=== PATIENT | female | born 1980 | race Caucasian/White ===

== ENCOUNTER → 2017-01-11 | Outpatient (CLI) | payer BC | END | disposition home or self-care (01) | LOC: LABWHC1 12:01 | PROVIDERS: ATTEND Obstetrics & Gynecology | DX: Z34.80 Encounter for supervision of other normal pregnancy, unspecified trimester (principal) | CPT/HCPCS: 36415; 84702 ==

== ENCOUNTER → 2017-03-26 | Outpatient (CLI) | payer BC | END | disposition home or self-care (01) | LOC: LABWHC1 12:31 | PROVIDERS: ATTEND Obstetrics & Gynecology | DX: Z34.80 Encounter for supervision of other normal pregnancy, unspecified trimester (principal); Z3A.00 Weeks of gestation of pregnancy not specified | CPT/HCPCS: 36415; 84702 ==

== ENCOUNTER → 2017-03-29 | Outpatient (CLI) | payer BC | END | disposition home or self-care (01) | LOC: LABWHC1 11:38 | PROVIDERS: ATTEND Obstetrics & Gynecology | DX: Z34.80 Encounter for supervision of other normal pregnancy, unspecified trimester (principal); Z3A.00 Weeks of gestation of pregnancy not specified | CPT/HCPCS: 36415; 84702 ==

== ENCOUNTER 2017-04-29 06:18 | Day surgery (SDC) | payer BC ==
[2017-04-27 09:50] VITALS: BMI 21.1
--- NOTE | 2017-04-28 20:16 | P.HPOB ---
History of Present Illness H&P Date: 04/28/17 Chief Complaint: Missed This is a 36 y.o. female, 3, para 1, who presents for suction dilatation and curettage secondary to missed noted on ultrasound at maternal medicine on 04/23/2017. Fetus pole measured 7 weeks 1 day with no heart tones. She did have a previous ultrasound in my office on 2017 that did show heart tones. In light of the demise, she has elected to proceed with suction dilatation and curettage and would like chromosomal studies done to help determine the cause. She had a recent spontaneous miscarriage in December. She denies any cramping or bleeding. Blood type is A+. OB History: . 1 section at 34 weeks due to severe preeclampsia. 1 spontaneous miscarriage. 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 Review of Systems Constitutional: Denies chills, Denies fever Eyes: denies blurred vision, denies pain Ears, nose, mouth and throat: Denies headache, Denies sore throat Cardiovascular: Denies chest pain, Denies shortness of breath Respiratory: Denies cough Gastrointestinal: Reports nausea, Reports vomiting Genitourinary: Reports , Denies abnormal vaginal bleeding, Denies pelvic pain Musculoskeletal: Denies myalgias Integumentary: Denies pruritus, Denies rash Past Medical History Past Medical History: Asthma Additional Past Medical History / Comment(s): Exercise induced asthma History of Any Multi-Drug Resistant Organisms: None Reported Additional Past Surgical History / Comment(s): D&C, pain management in back Past Anesthesia/Blood Transfusion Reactions: No Reported Reaction Past Psychological History: No Psychological Hx Reported Smoking Status: Never smoker Past Alcohol Use History: None Reported Past Drug Use History: None Reported - Past Family History Mother History Unknown: Yes Family Medical History: Hypertension Medications and Allergies Home Medications Medication Instructions Recorded Confirmed Type Ondansetron [Zofran] 4 mg PO Q8HR PRN 04/27/17 04/29/17 History Allergies Allergy/AdvReac Type Severity Reaction Status Date / Time PCN Allergy Rash/Hives Uncoded 04/29/17 06:46 Exam Osteopathic Statement: *. No significant issues noted on an osteopathic structural exam other than those noted in the History and Physical/Consult. HEENT: within normal limits Heart: regular rate and rhythm Lungs: clear to auscultation bilaterall Abdomen: soft, non-tender Pelvic: uterus sl. enlarged, retroverted, non-tender, with no adnexal masses Extremities: neg. Luis Eduardo's. Assessment and Plan (1) Missed Current Visit: Yes Status: Acute Code(s): O02.1 - MISSED SNOMED Code(s): 06866813 Plan: Proceed with suction dilatation and curettage. I have discussed the risks, benefits, and alternative therapies for the above- mentioned procedure and for both sedation/anesthesia as well as necessary blood products administration, if indicated, as they pertain to this patient. The patient has indicated her understanding and acceptance of the risks and procedures discussed.
[~2017-04-29 06:18] MED LIST: LACTATED RINGERS 1,000 ML IV SCH; MORPHINE SULFATE 4 MG/ML SYRINGE IV PRN; ONDANSETRON 4 MG/2 ML VIAL IVP PRN; Pre Op ABX Message 1 EACH MISC MISCELLANE ONE; fentaNYL (PF) 50 MCG/ML 2 ML AMP IV PRN
[2017-04-29] MEDS ORDERED: LIDOCAINE 1%-EPI 1:100,000 30 ML VIAL INTRAARTIC ONE (07:07)
[2017-04-29] MEDS ORDERED: DEXAMETHASONE SOD PHOSPHATE 10 MG/ML 1 ML VIAL IV ONE (07:13)
[2017-04-29] MEDS ORDERED: KETOROLAC 30 MG/ML 1 ML VIAL ONE (07:33)
[2017-04-29] MEDS ORDERED: MIDAZOLAM 2 MG/2 ML VIAL ONE (07:33)
[2017-04-29] MEDS ORDERED: fentaNYL (PF) 50 MCG/ML 2 ML AMP ONE (07:33)
[2017-04-29] MEDS ORDERED: PROPOFOL 10 MG/ML 20 ML VIAL IV ONE (07:33)
[2017-04-29] MEDS ORDERED: LIDOCAINE 1% INJ 10MG/ML (20 ML MDV) ONE (07:33)
--- NOTE | 2017-04-29 07:55 | P.OP ---
Date of Procedure: 04/29/17 Preoperative Diagnosis: Missed Postoperative Diagnosis: Same Procedure(s) Performed: Suction dilation and curettage Anesthesia: SIERRA Surgeon: Elziabeth Dial Estimated Blood Loss (ml): 10 Pathology: other (Products of conception) Condition: stable Disposition: same day Indications for Procedure: This is a 36 y.o. female, 3, para 1, who presents for suction dilatation and curettage secondary to missed noted on ultrasound at maternal medicine on 04/23/2017. Fetus pole measured 7 weeks 1 day with no heart tones. She did have a previous ultrasound in my office on 2017 that did show heart tones. In light of the demise, she has elected to proceed with suction dilatation and curettage and would like chromosomal studies done to help determine the cause. She had a recent spontaneous miscarriage in December. She denies any cramping or bleeding. Blood type is A+. Operative Findings: Uterus is retroverted with no adnexal masses palpated. A large amount of products of conception are obtained. Uterus is sounded to 11 cm Description of Procedure: The patient is taken to the operating room where she is placed in the dorsal lithotomy position. She is prepped and draped in the normal sterile fashion. Bladder is drained with a catheter and then removed. Uterus is palpated and found to be retroverted with no adnexal masses palpated. Uterus is sounded to 11 cm. Cervix is gently dilated with Hogan dilators until an 8 mm curved suction curet could be placed. Suction curetting was performed with a large amount of tissue obtained. Next a medium-size sharp curet was introduced and gentle sharp curettage was performed with no further tissue obtained. Next suction curetting was performed one further time to remove any blood clot. Next the single-tooth tenaculum is removed and pressure was applied with a ring forcep for hemostasis. Once the ring forcep was removed no active bleeding was noted. All other instruments were removed from the vagina. Estimated blood loss is approximately 10 mL's. Specimen will be sent to pathology for chromosomal analysis in normal saline.
[2017-04-29 08:10] VITALS: TEMP 98.4
[2017-04-29 09:11] VITALS: RESP 18
[2017-04-29 09:20] VITALS: BP 100/64; PULSE 68
== END 2017-04-29 09:38 | disposition home or self-care (01) ==
LOC: OR 06:18
PROVIDERS: ATTEND Obstetrics & Gynecology
DX: O02.1 Missed abortion (principal); J45.909 Unspecified asthma, uncomplicated; Z88.0 Allergy status to penicillin
CPT/HCPCS: 88305; 59820; J2250; J1100; J2405; J2001; J3010; J1885; J2704

== ENCOUNTER → 2017-08-10 | Outpatient (CLI) | payer BC | END | disposition home or self-care (01) | LOC: LABWHC1 16:33 | PROVIDERS: ATTEND Obstetrics & Gynecology | DX: Z34.80 Encounter for supervision of other normal pregnancy, unspecified trimester (principal); Z3A.00 Weeks of gestation of pregnancy not specified | CPT/HCPCS: 36415; 84702 ==

== ENCOUNTER → 2017-08-12 | Outpatient (CLI) | payer BC | END | disposition home or self-care (01) | LOC: LABWHC1 16:16 | PROVIDERS: ATTEND Obstetrics & Gynecology | DX: Z34.80 Encounter for supervision of other normal pregnancy, unspecified trimester (principal) | CPT/HCPCS: 36415; 84702 ==

== ENCOUNTER → 2017-08-16 | Outpatient (CLI) | payer BC | END | disposition home or self-care (01) | LOC: LABWHC1 13:02 | PROVIDERS: ATTEND Obstetrics & Gynecology | DX: Z34.80 Encounter for supervision of other normal pregnancy, unspecified trimester (principal) | CPT/HCPCS: 36415; 84702 ==

== ENCOUNTER 2017-09-28 11:11 | Day surgery (SDC) | payer BC ==
[2017-09-27 11:35] VITALS: BMI 21.9
--- NOTE | 2017-09-27 19:29 | P.HPOB ---
History of Present Illness H&P Date: 09/27/17 Chief Complaint: Missed This is a 36-year-old female 4 para 1 who presents for suction dilation and curettage due to missed . She initially presented for her first OB visit on 09/23/2017 and should've been 9 weeks 5 days based on her last menstrual period. Ultrasound at that time showed a demise measuring approximate 7 weeks 5 days. She had a repeat ultrasound on 09/27/2017 which again confirmed demise at 7 weeks 5 days. She has had some cramping but no bleeding. Her blood type is A+. Since this is her third miscarriage and a row, she wishes chromosomal studies to be performed to determine possible cause of miscarriage. With her last miscarriage in April 2017, chromosomal studies were performed and fetus showed a trisomy 15 karyotype. Obstetrical history: . History of 1 section at 34 weeks due to distress and severe preeclampsia. History of 2 miscarriages following that delivery. Gynecologic history: No history of sexual transmitted diseases. She does have a history of positive high risk HPV on her last Pap smear. Social history: She is . 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 Review of Systems Constitutional: Denies chills, Denies fever Eyes: denies blurred vision, denies pain Ears, nose, mouth and throat: Denies headache, Denies sore throat Cardiovascular: Denies chest pain, Denies shortness of breath Respiratory: Denies cough Gastrointestinal: Reports abdominal pain (Lower abdominal cramping), Denies diarrhea, Denies nausea, Denies vomiting Genitourinary: Reports pelvic pain, Reports Integumentary: Denies pruritus, Denies rash Neurological: Denies numbness, Denies weakness Psychiatric: Denies anxiety, Denies depression Past Medical History Past Medical History: Asthma Additional Past Medical History / Comment(s): Exercise induced asthma, fibromyalgia History of Any Multi-Drug Resistant Organisms: None Reported Past Surgical History: Section Additional Past Surgical History / Comment(s): currently having on and off cramping, D&C 2, pain management in back Past Anesthesia/Blood Transfusion Reactions: No Reported Reaction Past Psychological History: No Psychological Hx Reported Smoking Status: Never smoker Past Alcohol Use History: None Reported Past Drug Use History: None Reported - Past Family History Mother History Unknown: Yes Family Medical History: Hypertension Medications and Allergies Home Medications Medication Instructions Recorded Confirmed Type Albuterol Inhaler [Ventolin Hfa 1 - 2 puff INHALATION RT-Q6H PRN 09/27/17 History Inhaler] Allergies Allergy/AdvReac Type Severity Reaction Status Date / Time PCN Allergy Rash/Hives Uncoded 09/27/17 11:31 Exam Osteopathic Statement: *. No significant issues noted on an osteopathic structural exam other than those noted in the History and Physical/Consult. Intake and Output 09/27/17 09/27/17 09/27/17 06:59 14:59 22:59 Other: Weight 63.503 kg HEENT: Within normal limits Heart: Regular rate and rhythm Lungs: Clear to auscultation bilaterally Abdomen: Soft, nontender Pelvic exam: Uterus is retroverted, nontender, slightly enlarged, with no adnexal masses palpated. Extremities: Negative Homans Assessment and Plan (1) Missed Status: Acute Code(s): O02.1 - MISSED SNOMED Code(s): 14975450 Plan: Proceed with suction dilation and curettage. Will send tissue for chromosomal analysis. I have discussed the risks, benefits, and alternative therapies for the above- mentioned procedure and for both sedation/anesthesia as well as necessary blood products administration, if indicated, as they pertain to this patient. The patient has indicated her understanding and acceptance of the risks and procedures discussed.
[~2017-09-28 11:11] MED LIST changes: +DEXAMETHASONE SOD PHOSPHATE 10 MG/ML 1 ML VIAL IV ONE; +MIDAZOLAM 2 MG/2 ML VIAL IV PRN; -MORPHINE SULFATE 4 MG/ML SYRINGE IV PRN; +ONDANSETRON 4 MG/2 ML VIAL IVP ONE; -ONDANSETRON 4 MG/2 ML VIAL IVP PRN; +SCOPOLAMINE 1.5MG/72HR PATCH TRANSDERM ONE
[2017-09-28 11:36] VITALS: TEMP 98.7
[2017-09-28] MEDS ORDERED: LIDOCAINE 1% 20 ML VIAL (10MG/ML) FOR IV START INTRADERMA ONE (11:42)
[2017-09-28] MEDS ORDERED: PROPOFOL 10 MG/ML 20 ML VIAL IV ONE (13:10)
[2017-09-28] MEDS ORDERED: fentaNYL (PF) 50 MCG/ML 2 ML AMP ONE (13:10)
[2017-09-28] MEDS ORDERED: KETOROLAC 30 MG/ML 1 ML VIAL ONE (13:10)
[2017-09-28] MEDS ORDERED: MIDAZOLAM 2 MG/2 ML VIAL ONE (13:10)
[2017-09-28] MEDS ORDERED: LIDOCAINE 1% INJ 10MG/ML (20 ML MDV) ONE (13:10)
--- NOTE | 2017-09-28 13:26 | P.OP ---
Date of Procedure: 09/28/17 Preoperative Diagnosis: Missed Postoperative Diagnosis: Same Procedure(s) Performed: Suction dilation and curettage Anesthesia: other (Mask general) Surgeon: Elizabeth Dial Estimated Blood Loss (ml): 20 Pathology: other (Products of conception-will be sent for chromosomal studies) Condition: stable Disposition: same day Indications for Procedure: This is a 36-year-old female 4 para 1 who presents for suction dilation and curettage due to missed . She initially presented for her first OB visit on 09/23/2017 and should've been 9 weeks 5 days based on her last menstrual period. Ultrasound at that time showed a demise measuring approximate 7 weeks 5 days. She had a repeat ultrasound on 09/27/2017 which again confirmed demise at 7 weeks 5 days. She has had some cramping but no bleeding. Her blood type is A+. Since this is her third miscarriage and a row, she wishes chromosomal studies to be performed to determine possible cause of miscarriage. With her last miscarriage in April 2017, chromosomal studies were performed and fetus showed a trisomy 15 karyotype. Operative Findings: Uterus is retroverted and sounded to 9-1/2 cm. A large amount of products of conception are obtained. Description of Procedure: The patient is taken to the operating room where she is placed in the dorsal lithotomy position. She is prepped and draped in the normal sterile fashion. Bladder is drained with a catheter and then removed. Examination is performed under anesthesia. Uterus is found to be retroverted with no adnexal masses palpated. Next a weighted speculum was placed in the patient's vagina and a right angle retractor was used to visualize the cervix. The anterior lip of the cervix is grasped with a single-tooth tenaculum. Next the uterus is sounded to 9-1/2 cm. Cervix is gently dilated with Hogan dilators until an 8 mm curved suction curet could be placed. Suction curetting was performed with a large amount of tissue obtained. Gentle sharp curettage was then performed with a medium-size sharp curet. Minimal further tissue was obtained. Next section curetting was performed one further time to remove any blood clot. A small amount of saline was used to clear the suction tubing. Next the single- tooth tenaculum was removed from the anterior lip of the cervix. Minimal bleeding was noted. Tissue will be sent for chromosomal studies. All sponge and needle counts are correct. Patient is taken to recovery room in stable condition.
[2017-09-28 13:40] VITALS: RESP 18
[2017-09-28 13:56] VITALS: BP 107/70; PULSE 74
== END 2017-09-28 14:21 | disposition home or self-care (01) ==
LOC: OR 11:11
PROVIDERS: ATTEND Obstetrics & Gynecology
DX: O02.1 Missed abortion (principal); Z3A.01 Less than 8 weeks gestation of pregnancy; N85.4 Malposition of uterus; J45.998 Other asthma; M79.7 Fibromyalgia; Z91.012 Allergy to eggs; Z91.011 Allergy to milk products; Z88.0 Allergy status to penicillin; Z91.018 Allergy to other foods
CPT/HCPCS: 86900; 86901; 88305; 59820; J2250; J1100; J2405; J2001; J3010; J1885; J2704

== ENCOUNTER → 2018-01-11 | Outpatient (CLI) | payer BC | END | disposition home or self-care (01) | LOC: LABWHC1 10:54 | PROVIDERS: ATTEND Obstetrics & Gynecology | DX: O26.819 Pregnancy related exhaustion and fatigue, unspecified trimester (principal); Z3A.00 Weeks of gestation of pregnancy not specified | CPT/HCPCS: 36415; 84702 ==

== ENCOUNTER → 2018-01-15 | Outpatient (CLI) | payer BC | END | disposition home or self-care (01) | LOC: LABWHC1 11:20 | PROVIDERS: ATTEND Obstetrics & Gynecology | DX: O26.819 Pregnancy related exhaustion and fatigue, unspecified trimester (principal); Z3A.00 Weeks of gestation of pregnancy not specified | CPT/HCPCS: 36415; 84702 ==

== ENCOUNTER → 2018-01-17 | Outpatient (CLI) | payer BC | END | disposition home or self-care (01) | LOC: LABWHC1 15:00 | PROVIDERS: ATTEND Obstetrics & Gynecology | DX: Z34.80 Encounter for supervision of other normal pregnancy, unspecified trimester (principal) | CPT/HCPCS: 36415; 84702 ==

== ENCOUNTER 2018-02-06 12:58 | Emergency (ER) | payer BC ==
[2018-02-06 13:03] VITALS: RESP 18
[2018-02-06] MEDS ORDERED: SODIUM CHLORIDE 0.9% 1,000 ML IV ONE (13:59)
--- NOTE | 2018-02-06 14:02 | ED ---
General Adult HPI <Ghulam Rueda - Last Filed: 02/06/18 15:59> - General Source: patient, RN notes reviewed Mode of arrival: ambulatory Limitations: no limitations <Salbador Reaves - Last Filed: 02/06/18 16:26> - General Chief complaint: Vaginal Bleeding Stated complaint: 8wks -bleeding Time Seen by Provider: 02/06/18 13:16 - History of Present Illness Initial comments: 37-year-old 5 P1 presents to the emergency department for a chief complaint of vaginal bleeding 4 hours. Patient states the bleeding started this morning and describes it as a light spotting. She states it has since resolved. However, patient has had 3 previous miscarriages this year and is worried about the . She admits to mild lower abdominal cramping but denies any significant pain. Patient denies any lightheadedness or shortness of breath. Patient is an established patient of Dr. Dial. Patient has no other complaints at this time including shortness of breath, chest pain, abdominal pain, nausea or vomiting, headache, or visual changes. (Salbador Reaves) - Related Data Home Medications Medication Instructions Recorded Confirmed Nwt-Vavk-Cemdx Acid 1 cap PO DAILY 02/06/18 02/06/18 [-U Capsule (formulary)] Allergies Allergy/AdvReac Type Severity Reaction Status Date / Time Penicillins Allergy Rash/Hives Verified 02/06/18 13:48 Review of Systems ROS Other: All systems not noted in ROS Statement are negative. <Ghulam Rueda - Last Filed: 02/06/18 15:59> ROS Other: All systems not noted in ROS Statement are negative. <Salbador Reaves - Last Filed: 02/06/18 16:26> ROS Statement: Those systems with pertinent positive or pertinent negative responses have been documented in the HPI. Past Medical History Past Medical History: Asthma Additional Past Medical History / Comment(s): Exercise induced asthma, fibromyalgia History of Any Multi-Drug Resistant Organisms: None Reported Past Surgical History: Section Additional Past Surgical History / Comment(s): currently having on and off cramping, D&C 2, pain management in back Past Anesthesia/Blood Transfusion Reactions: No Reported Reaction Past Psychological History: No Psychological Hx Reported Smoking Status: Never smoker Past Alcohol Use History: None Reported Past Drug Use History: None Reported - Past Family History Mother History Unknown: Yes Family Medical History: Hypertension <Salbador Reaves - Last Filed: 02/06/18 16:26> General Exam Limitations: no limitations General appearance: alert, in no apparent distress Head exam: Present: atraumatic, normocephalic, normal inspection Eye exam: Present: normal appearance, PERRL, EOMI. Absent: scleral icterus, conjunctival injection, periorbital swelling ENT exam: Present: normal exam, mucous membranes moist Neck exam: Present: normal inspection, full ROM. Absent: tenderness, meningismus, lymphadenopathy Respiratory exam: Present: normal lung sounds bilaterally. Absent: respiratory distress, wheezes, rales, rhonchi, stridor Cardiovascular Exam: Present: regular rate, normal rhythm, normal heart sounds. Absent: systolic murmur, diastolic murmur, rubs, gallop, clicks GI/Abdominal exam: Present: soft, normal bowel sounds. Absent: distended, tenderness, guarding, rebound, rigid External exam: Present: normal external exam. Absent: erythema, swelling, lesions, lacerations, ecchymosis Speculum exam: Present: normal speculum exam. Absent: erythema, vaginal discharge, cervical discharge, vaginal bleeding, foreign body, tissue, laceration By manual exam: Present: normal by manual exam. Absent: cervical motion tenderness, adnexal tenderness, adnexal mass, uterine enlargement, uterine tenderness Neurological exam: Present: alert, oriented X3, CN II-XII intact Psychiatric exam: Present: normal affect, normal mood <Sablador Reaves - Last Filed: 02/06/18 16:26> Vital Signs 02/06/18 13:00 Temperature 98.4 F Pulse Rate 92 Respiratory 18 Rate Blood Pressure 123/81 O2 Sat by Pulse 100 Oximetry Medical Decision Making - Lab Data Result diagrams: 02/06/18 14:05 02/06/18 14:05 <Ghulam Rueda - Last Filed: 02/06/18 15:59> - Lab Data Result diagrams: 02/06/18 14:05 02/06/18 14:05 <Salbador Reaves - Last Filed: 02/06/18 16:26> - Medical Decision Making Patient reevaluated by myself, Dr. Rueda. Patient resting comfortably in bed. Patient states she had mild bleeding this morning that has resolved. No pain. Abdomen and lower abdomen soft and nontender on exam. Results reviewed. Patient updated on results. Patient is made aware that ectopic has not completely ruled out and is provided warning signs for need to return. Case was also discussed in detail with Dr. Ochoa, covering for Dr. Dial. He does request repeat beta and 48 hours and ultrasound as planned. He does recommend patient also follow-up with Dr. Dial in 48 hours. (Ghulam Rueda) 37-year-old female presents to the emergency department for intermittent spotting that lasted for a few hours but has since resolved. Patient is 8 weeks . She denies any pain. Speculum exam reveals no vaginal bleeding , cervical as does appear closed at this time. Abdomen is nontender. CBC and CMP are unremarkable. HCG Quant is 3698. Patient has a positive blood type, does not need RhoGAM. Ultrasound shows a thickened endometrium with complex fluid, no evidence of gestational sac, this could be incomplete . On ultrasound report beta hCG is recorded as 36,986. This is likely why the impression reads possibility of early molar . Dr. Rueda spoke with Dr. Ochoa who is on-call for Dr. Dial. Dr. Roldan recommends repeat beta hCG and follow-up on Wednesday with Dr. Dial after her ultrasound appointment. Patient will call the office Wednesday to verify that she will see Dr. Dial. She will have blood work repeated before she has her appointment. She will return if she has any worsening symptoms. (Salbador Reaves) - Lab Data Lab Results 02/06/18 02/06/18 02/06/18 Range/Units 14:05 14:05 14:05 WBC 4.8 (3.8-10.6) k/uL RBC 3.91 (3.80-5.40) m/uL Hgb 12.8 (11.4-16.0) gm/dL Hct 37.4 (34.0-46.0) % MCV 95.7 (80.0-100.0) fL MCH 32.6 (25.0-35.0) pg MCHC 34.1 (31.0-37.0) g/dL RDW 12.1 (11.5-15.5) % Plt Count 276 (150-450) k/uL Neutrophils % (Manual) 72 % Lymphocytes % (Manual) 20 % Monocytes % (Manual) 8 % Neutrophils # (Manual) 3.46 (1.3-7.7) k/uL Lymphocytes # (Manual) 0.96 L (1.0-4.8) k/uL Monocytes # (Manual) 0.38 (0-1.0) k/uL Nucleated RBCs 0 (0-0) /100 WBC Manual Slide Review Performed RBC Morphology Normal Sodium 140 (137-145) mmol/L Potassium 3.8 (3.5-5.1) mmol/L Chloride 107 (98-107) mmol/L Carbon Dioxide 24 (22-30) mmol/L Anion Gap 9 mmol/L BUN 11 (7-17) mg/dL Creatinine 0.67 (0.52-1.04) mg/dL Est GFR (CKD-EPI)AfAm >90 (>60 ml/min/1.73 sqM) Est GFR (CKD-EPI)NonAf >90 (>60 ml/min/1.73 sqM) Glucose 95 (74-99) mg/dL Calcium 9.5 (8.4-10.2) mg/dL Total Bilirubin 0.8 (0.2-1.3) mg/dL AST 16 (14-36) U/L ALT 17 (9-52) U/L Alkaline Phosphatase 42 (38-126) U/L Total Protein 7.6 (6.3-8.2) g/dL Albumin 4.3 (3.5-5.0) g/dL HCG, Quant 3698.6 mIU/mL Urine Color Urine Appearance (Clear) Urine pH (5.0-8.0) Ur Specific [place] (1.001-1.035) Urine Protein (Negative) Urine Glucose (UA) (Negative) Urine Ketones (Negative) Urine Blood (Negative) Urine Nitrite (Negative) Urine Bilirubin (Negative) Urine Urobilinogen (<2.0) mg/dL Ur Leukocyte Esterase (Negative) Urine RBC (0-5) /hpf Urine WBC (0-5) /hpf Ur Squamous Epith Cells (0-4) /hpf Urine Mucus (None) /hpf Blood Type A Positive Blood Type Recheck No 02/06/18 Range/Units 14:05 WBC (3.8-10.6) k/uL RBC (3.80-5.40) m/uL Hgb (11.4-16.0) gm/dL Hct (34.0-46.0) % MCV (80.0-100.0) fL MCH (25.0-35.0) pg MCHC (31.0-37.0) g/dL RDW (11.5-15.5) % Plt Count (150-450) k/uL Neutrophils % (Manual) % Lymphocytes % (Manual) % Monocytes % (Manual) % Neutrophils # (Manual) (1.3-7.7) k/uL Lymphocytes # (Manual) (1.0-4.8) k/uL Monocytes # (Manual) (0-1.0) k/uL Nucleated RBCs (0-0) /100 WBC Manual Slide Review RBC Morphology Sodium (137-145) mmol/L Potassium (3.5-5.1) mmol/L Chloride (98-107) mmol/L Carbon Dioxide (22-30) mmol/L Anion Gap mmol/L BUN (7-17) mg/dL Creatinine (0.52-1.04) mg/dL Est GFR (CKD-EPI)AfAm (>60 ml/min/1.73 sqM) Est GFR (CKD-EPI)NonAf (>60 ml/min/1.73 sqM) Glucose (74-99) mg/dL Calcium (8.4-10.2) mg/dL Total Bilirubin (0.2-1.3) mg/dL AST (14-36) U/L ALT (9-52) U/L Alkaline Phosphatase (38-126) U/L Total Protein (6.3-8.2) g/dL Albumin (3.5-5.0) g/dL HCG, Quant mIU/mL Urine Color Yellow Urine Appearance Clear (Clear) Urine pH 6.5 (5.0-8.0) Ur Specific [place] 1.021 (1.001-1.035) Urine Protein Trace H (Negative) Urine Glucose (UA) Negative (Negative) Urine Ketones Negative (Negative) Urine Blood Trace H (Negative) Urine Nitrite Negative (Negative) Urine Bilirubin Negative (Negative) Urine Urobilinogen 2.0 (<2.0) mg/dL Ur Leukocyte Esterase Negative (Negative) Urine RBC 4 (0-5) /hpf Urine WBC 1 (0-5) /hpf Ur Squamous Epith Cells 1 (0-4) /hpf Urine Mucus Few H (None) /hpf Blood Type Blood Type Recheck Disposition <Ghulam Rueda - Last Filed: 02/06/18 15:59> Is patient prescribed a controlled substance at d/c from ED?: No Time of Disposition: 16:11 <Salbador Reaves - Last Filed: 02/06/18 16:26> Clinical Impression: Threatened miscarriage Disposition: HOME SELF-CARE Condition: Good Instructions: Threatened Miscarriage (ED) Additional Instructions: Please have blood work repeated Wednesday before you see Dr. Dial. Please attend your ultrasound appointment on Wednesday and see Dr. Dial. Call Wednesday to arrange an appointment. Return to the emergency department if you have any worsening symptoms. Referrals: Jin Ortiz MD [Primary Care Provider] - 1-2 days
[2018-02-06 14:20] LABS: HCT 37.4 % (34.0-46.0); HGB 12.8 gm/dL (11.4-16.0); MCH 32.6 pg (25.0-35.0); MCHC 34.1 g/dL (31.0-37.0); MCV 95.7 fL (80.0-100.0); Mean Platelet Volume 6.7; Platelet Count 276 k/uL (150-450); RBC 3.91 m/uL (3.80-5.40); RDW 12.1 % (11.5-15.5); WBC 4.8 k/uL (3.8-10.6)
[2018-02-06 14:29] LABS: ALT 17 U/L (9-52); AST 16 U/L (14-36); Albumin 4.3 g/dL (3.5-5.0); Alkaline Phosphatase 42 U/L (38-126); Anion Gap 9 mmol/L; Blood Urea Nitrogen 11 mg/dL (7-17); Calcium 9.5 mg/dL (8.4-10.2); Carbon Dioxide 24 mmol/L (22-30); Chloride 107 mmol/L (98-107); Glucose 95 mg/dL (74-99); Potassium 3.8 mmol/L (3.5-5.1); Sodium 140 mmol/L (137-145); Total Bilirubin 0.8 mg/dL (0.2-1.3); Total Protein 7.6 g/dL (6.3-8.2)
[2018-02-06 14:39] LABS: Appearance,Urine Clear (Clear); Bilirubin,Urine Negative (Negative); Blood,Urine Trace (Negative); Color,Urine Yellow; Glucose,Urine (UA) Negative (Negative); Ketones,Urine Negative (Negative); Leukocyte Esterase,Urine Negative (Negative); Lymphocytes # (M) 0.96 k/uL (1.0-4.8); Monocytes # (M) 0.38 k/uL (0-1.0); Mucus,Urine Few /hpf; Neutrophils # (M) 3.46 k/uL (1.3-7.7); Neutrophils % (M) 72 %; Nitrite,Urine Negative (Negative); Nucleated Red Blood Cells 0 /100 WBC (0-0); PH, Urine 6.5 (5.0-8.0); Protein,Urine Trace (Negative); RBC,Urine 4 /hpf (0-5); Specific Gravity,Urine 1.021 (1.001-1.035); Squamous Epithelial Cell,Urine 1 /hpf (0-4); Total Cells Counted 100; WBC,Urine 1 /hpf (0-5)
[2018-02-06 15:00] LABS: HCG,Quantitative Serum 3698.6 mIU/mL
--- NOTE | 2018-02-06 15:21 | US ---
EXAMINATION TYPE: Transabdominal DATE OF EXAM: 06/01/17 COMPARISON: NONE CLINICAL HISTORY: bleeding. EXAM PERFORMED: Transvaginal (TV) and Transabdominal (TA) EXAM MEASUREMENTS: GESTATIONAL AGE / DATING Physician Established: Not yet established Dates by LMP: (7 weeks/1 days) EDC: 09/21/18 Dates by First Scan: No previous this is first scan Dates by Current Scan for: Unable to date by today's study MATERNAL ANATOMY Uterus: 6.7 x 3.8 x 4.6cm Right Ovary: 2.0 x 2.2 x 2.0cm Left Ovary: 1.4 x 1.1 x 1.1cm Post CDS / Adnexa: wnl Presence of free fluid: no Presence of probable corpus luteal cyst: 1.6 x 1.5 x 1.3cm GESTATION / SURVEY IUP: No IUP seen at this time Endometrium thick with possible blood within, endometrium measures 1.1cm. Endometrium heterogeneous with multiple cystic areas within. Date of LMP: 12/15/17 Beta HcG (if available): 99021 IMPRESSION: Thickened endometrium with complex fluid. No evidence of a gestational sac. No adnexal mass. Follow-u p is recommended. The possibility of a early molar should be considered. This could also be incomplete .
[2018-02-06 16:29] VITALS: BP 119/72; PULSE 72; TEMP 97.3
[2018-02-08 13:22] LABS: C. trachomatis,PCR Negative (Neg,Equiv); Chlamydia trachomatis Source Vagina
[2018-02-08 13:25] LABS: N. gonorrhoeae,PCR Negative (Neg,Equiv); Neisseria Source Vagina
== END 2018-02-06 16:29 | disposition home or self-care (01) ==
LOC: EC 12:58
DX: O20.0 Threatened abortion (principal); Z3A.08 8 weeks gestation of pregnancy; Z88.0 Allergy status to penicillin
CPT/HCPCS: 36415; 76801; 76817; 80053; 81001; 84702; 85025; 86900; 86901; 87491; 87591; 96360; 99284

== ENCOUNTER → 2018-02-08 | Outpatient (CLI) | payer BC | LOC: LABWHC1 11:45 | PROVIDERS: ATTEND Physician Assistant Medical | DX: O20.0 Threatened abortion (principal) | CPT/HCPCS: 36415; 84702 ==

== ENCOUNTER → 2018-02-09 | Outpatient (CLI) | payer BC ==
[2018-02-09 14:26] VITALS: BP 119/79; PULSE 73; RESP 16; TEMP 98.3
[2018-02-09] MEDS: METHOTREXATE SODIUM (PF) 25 MG/ML 2 ML VIAL IM ONE (15:15)
== END ==
LOC: PROCWHC3 14:19
PROVIDERS: ATTEND Obstetrics & Gynecology
DX: O00.90 Unspecified ectopic pregnancy without intrauterine pregnancy (principal)
CPT/HCPCS: 96402; J9260

== ENCOUNTER → 2018-02-09 | Outpatient (CLI) | payer BC | END | disposition home or self-care (01) | LOC: LABWHC1 14:10 | PROVIDERS: ATTEND Obstetrics & Gynecology | DX: O00.90 Unspecified ectopic pregnancy without intrauterine pregnancy (principal) | CPT/HCPCS: 36415; 84702 ==

== ENCOUNTER → 2018-02-12 | Outpatient (CLI) | payer BC | END | disposition home or self-care (01) | LOC: LABWHC1 10:54 | PROVIDERS: ATTEND Obstetrics & Gynecology | DX: O00.90 Unspecified ectopic pregnancy without intrauterine pregnancy (principal); Z3A.00 Weeks of gestation of pregnancy not specified | CPT/HCPCS: 36415; 84702 ==

== ENCOUNTER → 2018-02-16 | Outpatient (CLI) | payer BC | END | disposition home or self-care (01) | LOC: LABWHC1 08:01 | PROVIDERS: ATTEND Obstetrics & Gynecology | DX: O00.90 Unspecified ectopic pregnancy without intrauterine pregnancy (principal); Z3A.00 Weeks of gestation of pregnancy not specified | CPT/HCPCS: 36415; 84702 ==

== ENCOUNTER → 2018-02-23 | Outpatient (CLI) | payer BC | END | disposition home or self-care (01) | LOC: LABWHC1 12:49 | PROVIDERS: ATTEND Obstetrics & Gynecology | DX: O00.90 Unspecified ectopic pregnancy without intrauterine pregnancy (principal) | CPT/HCPCS: 36415; 84702 ==

== ENCOUNTER → 2018-03-16 | Outpatient (CLI) | payer BC | END | disposition home or self-care (01) | LOC: LABWHC1 13:28 | PROVIDERS: ATTEND Obstetrics & Gynecology | DX: O00.90 Unspecified ectopic pregnancy without intrauterine pregnancy (principal); Z3A.00 Weeks of gestation of pregnancy not specified | CPT/HCPCS: 36415; 84702 ==

== ENCOUNTER → 2018-08-02 | Outpatient (CLI) | payer BC | LOC: LABWHC1 11:50 | PROVIDERS: ATTEND Obstetrics & Gynecology | DX: Z34.80 Encounter for supervision of other normal pregnancy, unspecified trimester (principal); Z3A.00 Weeks of gestation of pregnancy not specified | CPT/HCPCS: 36415; 84702 ==

== ENCOUNTER → 2018-08-04 | Outpatient (CLI) | payer BC | END | disposition home or self-care (01) | LOC: LABWHC1 11:12 | PROVIDERS: ATTEND Obstetrics & Gynecology | DX: Z34.80 Encounter for supervision of other normal pregnancy, unspecified trimester (principal); Z3A.00 Weeks of gestation of pregnancy not specified | CPT/HCPCS: 36415; 84702 ==

== ENCOUNTER 2019-03-09 12:26 | Outpatient (CLI) | payer BC ==
[2019-03-09 13:21] LABS: HCT 33.3 % (34.0-46.0); HGB 11.1 gm/dL (11.4-16.0); MCH 31.3 pg (25.0-35.0); MCHC 33.2 g/dL (31.0-37.0); MCV 94.1 fL (80.0-100.0); Mean Platelet Volume 8.8; Platelet Count 349 k/uL (150-450); RBC 3.54 m/uL (3.80-5.40); RDW 12.7 % (11.5-15.5); WBC 6.6 k/uL (3.8-10.6)
[2019-03-09 13:28] LABS: ALT 10 U/L (4-34); AST 29 U/L (14-36); African American GFR (CKD) >90 (>60 ml/min/1.73 sqM); Blood Urea Nitrogen 6 mg/dL (7-17); LDH 986 U/L (313-618); Non-African American GFR(CKD) >90 (>60 ml/min/1.73 sqM); Uric Acid 4.2 mg/dL (3.7-7.4)
[2019-03-09 13:44] LABS: Basophils # (M) 0.07 k/uL (0-0.2); Lymphocytes # (M) 1.12 k/uL (1.0-4.8); Monocytes # (M) 0.33 k/uL (0-1.0); Neutrophils # (M) 5.08 k/uL (1.3-7.7); Neutrophils % (M) 77 %; Nucleated Red Blood Cells 0 /100 WBC (0-0); Total Cells Counted 100
[2019-03-09 15:33] LABS: Appearance,Urine Cloudy (Clear); Bacteria,Urine Rare /hpf; Bilirubin,Urine Negative (Negative); Blood,Urine Negative (Negative); Color,Urine Yellow; Glucose,Urine (UA) Negative (Negative); Ketones,Urine Negative (Negative); Leukocyte Esterase,Urine Negative (Negative); Mucus,Urine Rare /hpf; Nitrite,Urine Negative (Negative); Protein,Urine Negative (Negative); RBC,Urine <1 /hpf (0-5); Specific Gravity,Urine 1.007 (1.001-1.035); Squamous Epithelial Cell,Urine 11 /hpf (0-4); Urobilinogen,Urine <2.0 mg/dL (<2.0); WBC,Urine 2 /hpf (0-5)
--- NOTE | 2019-03-21 17:01 | P.MSEPDOC ---
Presenting Problems - Arrival Data Date of Arrival on Unit: 03/09/19 Time of Arrival on Unit: 12:26 Mode of Transport: Ambulatory - Complaint OB-Reason for Admission/Chief Complaint: PIH Comment: pt sent over from the the office by Dr. Dial for PIH workup Medical History - Information : 6 Para: 1 Term: 0 : 1 Abortions: Spontaneous or Elective: 4 Number of Living Children: 1 - Gestational Age Gestational Age by MARCI (wks/days): 34 Weeks and 6 Days Review of Systems - Review of Systems Constitutional: No problems Breast: No problems ENT: No problems Cardiovascular: No problems Respiratory: No problems Gastrointestinal: No problems Genitourinary: No problems Musculoskeletal: No problems Neurological: No problems Skin: No problems Physician Notification (Pre) - Physician Notified Physician Notified Date: 03/09/19 Physician Notified Time: 15:48 New Order Received: Yes - Notification Comment Comment: Dr. Dial notifed of bp's, reactive nst, and labs, and LDH only one elevated, orders to discharge pt home and follow up with MFM on Wednesday and Wed with Dr. Dial in her office, reviewed s/s of when to return for another evaluation, pt verbalized understanding Disposition - Disposition OB Disposition: Triage, Discharge to home, Written follow up instructions reviewed Discharge Date: 03/09/19 Discharge Time: 15:55 I agree with the RN Medical Screening Exam: Yes Risk & Benefit of care provided described in d/c instruction: Yes Diagnosis: GESTATIONAL HTN W/O SIGNIFICANT PROTEINURIA, THIRD TRIMESTER
== END 2019-03-09 15:55 | disposition home or self-care (01) ==
LOC: FBPOP 12:26
PROVIDERS: ATTEND Obstetrics & Gynecology
DX: O13.3 Gestational [pregnancy-induced] hypertension without significant proteinuria, third trimester (principal); Z3A.34 34 weeks gestation of pregnancy
CPT/HCPCS: 59025; 81001; 82565; 82570; 83615; 84156; 84450; 84460; 84520; 84550; 85025

== ENCOUNTER 2019-03-11 14:41 | Observation (INO) | payer BC ==
[2019-03-11 15:45] LABS: Appearance,Urine Cloudy (Clear); Bacteria,Urine Rare /hpf; Bilirubin,Urine Negative (Negative); Blood,Urine Negative (Negative); Calcium Oxalate Crystals,Urine Few /hpf; Color,Urine Yellow; Glucose,Urine (UA) Negative (Negative); Ketones,Urine Trace (Negative); Leukocyte Esterase,Urine Negative (Negative); Mucus,Urine Moderate /hpf; Nitrite,Urine Negative (Negative); Protein,Urine 1+ (Negative); Specific Gravity,Urine 1.031 (1.001-1.035); Squamous Epithelial Cell,Urine 32 /hpf (0-4); Urobilinogen,Urine <2.0 mg/dL (<2.0); WBC,Urine 3 /hpf (0-5)
[2019-03-11 16:00] LABS: ALT 9 U/L (4-34); AST 23 U/L (14-36); African American GFR (CKD) >90 (>60 ml/min/1.73 sqM); Blood Urea Nitrogen 10 mg/dL (7-17); LDH 405 U/L (313-618); Non-African American GFR(CKD) >90 (>60 ml/min/1.73 sqM); Uric Acid 4.1 mg/dL (3.7-7.4)
[2019-03-11 16:08] LABS: HCT 31.1 % (34.0-46.0); HGB 10.5 gm/dL (11.4-16.0); MCH 31.6 pg (25.0-35.0); MCHC 33.7 g/dL (31.0-37.0); MCV 93.7 fL (80.0-100.0); Mean Platelet Volume 9.8; Platelet Count 317 k/uL (150-450); RBC 3.32 m/uL (3.80-5.40); RDW 12.8 % (11.5-15.5); WBC 7.6 k/uL (3.8-10.6)
[2019-03-11 16:31] LABS: Lymphocytes # (M) 0.84 k/uL (1.0-4.8); Monocytes # (M) 0.61 k/uL (0-1.0); Neutrophils # (M) 6.16 k/uL (1.3-7.7); Neutrophils % (M) 81 %; Nucleated Red Blood Cells 0 /100 WBC (0-0); Total Cells Counted 100
--- NOTE | 2019-03-11 16:56 | P.HPOB ---
History of Present Illness H&P Date: 03/11/19 Chief Complaint: Gestational hypertension This patient is a 38 yr female EDC 04/14/2019 estimated gestational age 35 1/7 weeks who called earlier today after taking her BP at home and noting it to be elevated, diastolic 100's. She has a history of severe preeclampsia in 2014 delivered at 34 weeks by C/S for non-reassuring FHTs. Patient's care is with Dr. Dial and also seeing M. Most recently she was in L&D on 03/09 after having a BP of 130/90 in the office. Labs at that time were normal with the exception of elevated LDH 986. Blood pressure her today is 135/93 on admission, but serial BPs are 120/80 without persistence of her hypertension. is also complicated by N/V and also was seen by cardiology for dizzy spells. Review of Systems Genitourinary: Reports Menstruation: Reports amenorrhea Past Medical History Past Medical History: Asthma Additional Past Medical History / Comment(s): Exercise induced asthma, fibromyalgia History of Any Multi-Drug Resistant Organisms: None Reported Past Surgical History: Section Additional Past Surgical History / Comment(s): D&C 2, pain management in back Past Anesthesia/Blood Transfusion Reactions: No Reported Reaction Past Psychological History: No Psychological Hx Reported Smoking Status: Never smoker Past Alcohol Use History: None Reported Past Drug Use History: None Reported - Past Family History Mother History Unknown: Yes Family Medical History: Hypertension Medications and Allergies Home Medications Medication Instructions Recorded Confirmed Type Aspirin [Adult Low Dose Aspirin EC] 81 mg PO DAILY 03/09/19 03/11/19 History Allergies Allergy/AdvReac Type Severity Reaction Status Date / Time corn Allergy Unknown Verified 03/11/19 14:58 egg Allergy Unknown Verified 03/11/19 14:58 milk Allergy Unknown Verified 03/11/19 14:58 Penicillins Allergy Rash/Hives Verified 03/11/19 14:58 wheat Allergy Unknown Verified 03/11/19 14:58 Exam Intake and Output 03/11/19 03/11/19 03/11/19 06:59 14:59 22:59 Other: Weight 78.29 kg Results Result Diagrams: 03/11/19 15:40 03/11/19 15:40 Abnormal Lab Results - Last 24 Hours (Table) 03/11/19 03/11/19 03/11/19 Range/Units 15:20 15:20 15:40 RBC 3.32 L (3.80-5.40) m/uL Hgb 10.5 L (11.4-16.0) gm/dL Hct 31.1 L (34.0-46.0) % Lymphocytes # (Manual) 0.84 L (1.0-4.8) k/uL Urine Appearance Cloudy H (Clear) Urine Protein 1+ H (Negative) Urine Ketones Trace H (Negative) Ur Squamous Epith Cells 32 H (0-4) /hpf Calcium Oxalate Crystal Few H (None) /hpf Urine Bacteria Rare H (None) /hpf Urine Mucus Moderate H (None) /hpf U Random Total Protein 17 H (<12) mg/dL Assessment and Plan Assessment: This is a 38 yr old female 35 1/7 weeks gestation with history of severe pre-eclampsia with previous delivery at 34 weeks who has been having elevated bl ood pressures at home. Serial blood pressures here are normal, however urine shows 1+ protein (however normal protein/creatine ratio). Plan is admission for 24 hr urine due to history and serial BPs. If normal 24hr urine and continued normal BPs, plan is discharge tomorrow to f/u with MFM on Wednesday. There is no evidence of pre-eclampsia with/without severe features. (1) 35 weeks gestation of Current Visit: Yes Status: Acute Code(s): Z3A.35 - 35 WEEKS GESTATION OF SNOMED Code(s): 70201639 (2) Gestational hypertension Current Visit: Yes Status: Acute Code(s): O13.9 - GESTATIONAL HTN W/O SIGNIFICANT PROTEINURIA, UNSP TRIMESTER SNOMED Code(s): 342835295 (3) Previous delivery affecting Current Visit: Yes Status: Acute Code(s): O34.219 - MATERNAL CARE FOR UNSP TYPE SCAR FROM PREVIOUS DEL SNOMED Code(s): 439287536
[2019-03-12 04:12] VITALS: RESP 16
--- NOTE | 2019-03-12 07:14 | P.PN ---
Progress Note - Text Progress Note Date: 03/12/19 Patient is resting today without complaints. Blood pressures remain excellent 120s over 70s. 0.4 urine is in process. Plan today is to await the results of her 24-hour urine. If the 24 urine is normal, she'll be discharged home later today to follow up with maternal medicine tomorrow as scheduled.
[2019-03-12] MEDS ORDERED: PRENATAL VIT-IRON-FOLIC ACID 1 EACH CAP PO SCH (09:00)
[2019-03-12] MEDS ORDERED: ACETAMINOPHEN TAB 325 MG TAB PO STA (11:56)
[2019-03-12 15:31] VITALS: BP 112/70; PULSE 81; TEMP 98.1
[2019-03-12 17:10] LABS: Total Volume 24 Hour,Urine 1800 mls (800-1800)
[2019-03-12 17:23] LABS: Total Protein 24 Hour,Urine 216 mg/24hr (42.0-225.0)
== END 2019-03-12 17:45 | disposition home or self-care (01) ==
LOC: FBPOP 14:41 → 4FBP 16:34
PROVIDERS: ADMIT Obstetrics & Gynecology; ATTEND Obstetrics & Gynecology
DX: O13.3 Gestational [pregnancy-induced] hypertension without significant proteinuria, third trimester (principal); Z3A.35 35 weeks gestation of pregnancy; O34.219 Maternal care for unspecified type scar from previous cesarean delivery; R74.0 Nonspecific elevation of levels of transaminase and lactic acid dehydrogenase [LDH]; O21.2 Late vomiting of pregnancy; R42 Dizziness and giddiness; O26.893 Other specified pregnancy related conditions, third trimester; Z3A.34 34 weeks gestation of pregnancy; J45.909 Unspecified asthma, uncomplicated; O99.513 Diseases of the respiratory system complicating pregnancy, third trimester; M79.7 Fibromyalgia; Z79.82 Long term (current) use of aspirin; Z91.012 Allergy to eggs; Z91.011 Allergy to milk products; Z88.0 Allergy status to penicillin; Z91.018 Allergy to other foods; Z82.49 Family history of ischemic heart disease and other diseases of the circulatory system
CPT/HCPCS: 59025; 99215; 82570; 84156 ×2; 81050; 82565; 83615; 84450; 84460; 84520; 84550; 85025; 81001; G0378 ×2

== ENCOUNTER 2019-03-24 05:53 | Inpatient (IN) | payer BC ==
--- NOTE | 2019-03-23 19:05 | P.HPOB ---
History of Present Illness H&P Date: 03/23/19 Chief Complaint: Repeat section with tubal ligation This is a 38 y.o. female 6, para 1, with an estimated gestational age of 204/14/2018, estimated gestational age of 37 weeks, who presents for repeat section with tubal ligation due to gestational hypertension, history of previous section, and family planning. She has been experiencing occasional elevated blood pressures, but none in severe category. Preeclampsia labs have been negative. She has followed with M throughout the due to history of severe preeclampsia with her 1st . labs: Hepatitis B surface antigen-neg RPR-NR Rubella-immune Blood type-A+ Antibody screen-neg Hemoglobin-12.8 Toxoplasam-neg Random glucose-87 1 hr. GTT-104 Group B streptococcus-neg OB Hx: . Hx of 1 section at 34 weeks for severe preeclampsia. History of 3 miscarriages and 1 ectopic treated with methotrexate. 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 Review of Systems Constitutional: Denies chills, Denies fever Eyes: denies blurred vision, denies pain Ears, nose, mouth and throat: Reports headache (occ), Reports nasal congestion, Denies sore throat Cardiovascular: Denies chest pain, Denies shortness of breath Respiratory: Denies cough Gastrointestinal: Reports abdominal pain (occ ctxs) Genitourinary: Reports pelvic pain, Reports Musculoskeletal: Reports low back pain Integumentary: Denies pruritus, Denies rash Psychiatric: Denies anxiety, Denies depression Past Medical History Past Medical History: Asthma Additional Past Medical History / Comment(s): Exercise induced asthma, fibromyal chica History of Any Multi-Drug Resistant Organisms: None Reported Past Surgical History: Section Additional Past Surgical History / Comment(s): D&C 3, pain management in back Past Anesthesia/Blood Transfusion Reactions: No Reported Reaction Past Psychological History: No Psychological Hx Reported Smoking Status: Never smoker Past Drug Use History: None Reported - Past Family History Mother History Unknown: Yes Family Medical History: Hypertension Medications and Allergies Home Medications Medication Instructions Recorded Confirmed Type Doxylamine Succinate [Unisom] 25 mg PO DAILY 03/24/19 03/24/19 History Pyridoxine [Vitamin B-6] 50 mg PO DAILY 03/24/19 03/24/19 History Allergies Allergy/AdvReac Type Severity Reaction Status Date / Time Penicillins Allergy Rash/Hives Verified 03/24/19 06:05 Exam Osteopathic Statement: *. No significant issues noted on an osteopathic structural exam other than those noted in the History and Physical/Consult. HEENT: within normal limits Heart: regular rate and rhythm Lungs: clear to auscultation bilaterally Abdomen: , non-tender heart tones: Category 1 Contractions: irregular Extremities: neg. Homans Results Result Diagrams: 03/24/19 06:25 Assessment and Plan (1) 37 weeks gestation of Current Visit: No Status: Acute Code(s): Z3A.37 - 37 WEEKS GESTATION OF SNOMED Code(s): 47322658 (2) Family planning Current Visit: No Status: Acute Code(s): Z30.09 - ENCOUNTER FOR OTH GENERAL CNSL AND ADVICE ON CONTRACEPTION SNOMED Code(s): 877288780 (3) Gestational hypertension Current Visit: No Status: Acute Code(s): O13.9 - GESTATIONAL HTN W/O SIGNIFICANT PROTEINURIA, UNSP TRIMESTER SNOMED Code(s): 494592520 (4) Previous delivery affecting Current Visit: No Status: Acute Code(s): O34.219 - MATERNAL CARE FOR UNSP TYPE SCAR FROM PREVIOUS DEL SNOMED Code(s): 381962129 Plan: Proceed with repeat section with bilateral partial salpingectomy. I have discussed the risks, benefits, and alternative therapies for the above- mentioned procedure and for both sedation/anesthesia as well as necessary blood products administration, if indicated, as they pertain to this patient. The patient has indicated her understanding and acceptance of the risks and procedures discussed.
[2019-03-24] MEDS ORDERED: CITRIC ACID-SODIUM CITRATE 15 ML CUP PO ONE (06:05)
[2019-03-24] MEDS ORDERED: LACTATED RINGERS 1,000 ML IV ONE (06:05)
[2019-03-24] MEDS ORDERED: LIDOCAINE 1% (10MG/ML) FOR IV START INTRADERMA PRN (06:05)
[2019-03-24] MEDS: LACTATED RINGERS 1,000 ML IV SCH ×2 (06:30→12:13)
[2019-03-24 06:40] LABS: HCT 32.6 % (34.0-46.0); HGB 10.7 gm/dL (11.4-16.0); MCH 30.8 pg (25.0-35.0); MCHC 32.9 g/dL (31.0-37.0); MCV 93.9 fL (80.0-100.0); Mean Platelet Volume 8.9; Platelet Count 319 k/uL (150-450); RBC 3.47 m/uL (3.80-5.40); RDW 13.2 % (11.5-15.5); WBC 6.7 k/uL (3.8-10.6)
[2019-03-24] MEDS ORDERED: CLINDAMYCIN 900 MG in DEXTROSE 5% IN WATER 50 ML IVPB ONE ×2 (07:00)
[2019-03-24 07:45] LABS: Eosinophils # (M) 0.13 k/uL (0-0.7); Lymphocytes # (M) 1.21 k/uL (1.0-4.8); Monocytes # (M) 0.47 k/uL (0-1.0); Neutrophils # (M) 4.89 k/uL (1.3-7.7); Neutrophils % (M) 73 %; Nucleated Red Blood Cells 0 /100 WBC (0-0); Total Cells Counted 100
[2019-03-24] MEDS ORDERED: MORPHINE SULFATE (PF) 0.3 MG/0.3 ML SYR ONE (07:50)
[2019-03-24] MEDS ORDERED: ONDANSETRON 4 MG/2 ML VIAL ONE (07:50)
[2019-03-24] MEDS ORDERED: KETOROLAC 30 MG/ML 1 ML VIAL ONE (07:50)
[2019-03-24] MEDS ORDERED: ePHEDrine SULFATE/0.9% NACL/PF 50 MG/5 ML SYRINGE IV ONE (07:50)
[2019-03-24] MEDS ORDERED: OXYTOCIN 10 UNIT/ML 1 ML VIAL ONE (07:50)
--- NOTE | 2019-03-24 08:42 | P.OP ---
Date of Procedure: 03/24/19 Preoperative Diagnosis: 1. Intrauterine at 37-0/7 weeks. 2. Gestational hypertension. 3. History of previous section. 4. Family-planning. Postoperative Diagnosis: Same Procedure(s) Performed: Repeat low transverse section with bilateral partial salpingectomy Anesthesia: spinal (Duramorph) Surgeon: Elizabeth Dial Mold Design Engineer #1: Pardeep Adan Estimated Blood Loss (ml): 500 Pathology: other (Placenta, portions of right and left fallopian tubes) Condition: stable Disposition: floor Indications for Procedure: This is a 38-year-old female 6 para 1 at 37-0/7 weeks who presents for scheduled repeat and section with bilateral salpingectomy secondary to gestational hypertension and family planning. I have discussed the risks, benefits, and alternative therapies for the above- mentioned procedure and for both sedation/anesthesia as well as necessary blood products administration, if indicated, as they pertain to this patient. The patient has indicated her understanding and acceptance of the risks and procedures discussed. Operative Findings: A viable male infant is noted in the vertex presentation with scores of 9 at 1 minute and 9 at 5 minutes and weight is noted to be 7 lbs. 6 oz. Normal uterus tubes and ovaries are noted. Description of Procedure: The patient is taken to the operating room where she is placed in the dorsal s upine position with leftward tilt after spinal Duramorph anesthesia is given. She is prepped and draped in the normal sterile fashion. Skin was tested and found to be adequately anesthetized. A Pfannenstiel skin incision was made with a scalpel through the previous laparotomy scar. A second knife was used to carry the incision down to the underlying layer of fascia. The fascia was nicked in the midline with a scalpel and then extended laterally bilaterally with Calvo scissors. The anterior lip of the fascia was grasped with 2 Sharifa clamps and then dissected off the underlying rectus muscle in the midline with Calvo scissors. The inferior aspect of the fascial incision was grasped with 2 Sharifa clamps and dissected off the underlying rectus muscle and the midline with Calvo scissors. Next the peritoneum layer was tented up with 2 hemostats and then entered sharply with the scalpel. The incision is extended superiorly and inferiorly with Metzenbaum scissors. Next a DeLee retractor is placed. The vesicouterine peritoneum is entered sharply with Metzenbaum scissors and extended laterally bilaterally with Metzenbaum scissors and then the bladder flap is pushed inferiorly. The lower uterine segment is incised in transverse fashion with the scalpel and then bluntly entered with a hemostat. Clear fluid is noted. The incision was then extended laterally bilaterally with 2 fingers. Next the 's head is delivered through the incision. Nose and mouth are bulb suctioned. The remainder of the is easily delivered and placed on mother's abdomen. Cord is clamped and cut. Infant is taken to warmer by nursing staff. Uterine fundus is gently massaged and placenta is delivered manually. Uterus is exteriorized and cleared of all clots and debris. Uterine incision is closed with 0 Vicryl suture in a running locked fashion. A second layer of 0 Vicryl suture is used in a running fashion for hemostasis. Once adequate hemostasis as assured, the vesicouterine peritoneum is reapproximated with 2-0 Vicryl suture in a running fashion. Next attention is turned to the tubes. The right fallopian tube is grasped in the midportion with a hemostat. The mesosalpinx is entered with Bovie cautery. Next 0 Vicryl suture is tied 2 times around both the proximal and distal portion of the tube. The knuckle of tube was then removed with Metzenbaum scissors and the ends of the tubes are cauterized with Bovie cautery excellent hemostasis is noted. The same procedure is carried out on the left fallopian tube. Posterior cul-de-sac is suctioned of all clots and debris. Uterus is returned to the abdomen. Incision is noted to be hemostatic. Both tubal sites are noted to be hemostatic. Peritoneal layer is closed with 0 Vicryl suture in a running fashion. Muscle layer is reapproximated with 0 Vicryl suture in interrupted fashion. Fascia layer is then closed with 0 PDS suture with 2 sutures meeting in the midline and the knots buried in either side and in the midline. The subcutaneous tissue was then closed with 2-0 Vicryl suture. Skin layer was then closed with kenneth. All sponge and needle counts are correct. The patient is taken to recovery room in stable condition.
[2019-03-24] MEDS ORDERED: NALOXONE 0.4 MG/ML 1 ML VIAL IV PRN (11:39)
[2019-03-24] MEDS ORDERED: HYDROcodone/APAP 5-325MG 1 EACH TAB PO PRN (11:39)
[2019-03-24] MEDS ORDERED: METOCLOPRAMIDE 5 MG/ML 2 ML VIAL IVP PRN (11:39)
[2019-03-24] MEDS ORDERED: ONDANSETRON 4 MG/2 ML VIAL IVP PRN ×2 (11:39→11:53)
[2019-03-24] MEDS ORDERED: ZOLPIDEM 5 MG TAB PO PRN (11:39)
[2019-03-24] MEDS ORDERED: diphenhydrAMINE 25 MG CAP PO PRN (11:39)
[2019-03-24] MEDS ORDERED: diphenhydrAMINE 50 MG CAP PO PRN (11:39)
[2019-03-24] MEDS ORDERED: OXYTOCIN 20 UNITS/1000 ML NS 1,000 ML IV SCH (11:39)
[2019-03-24] MEDS ORDERED: LANOLIN CREAM 5 GM TUBE TOPICAL PRN (11:39)
[2019-03-24] MEDS ORDERED: diphenhydrAMINE 50 MG/ML 1 ML VIAL IVP PRN ×2 (11:39)
[2019-03-24] MEDS ORDERED: SIMETHICONE 80 MG CHEWABLE PO PRN (11:39)
[2019-03-24] MEDS ORDERED: ACETAMINOPHEN TAB 325 MG TAB PO PRN (11:39)
[2019-03-24] MEDS ORDERED: MORPHINE SULFATE 2 MG/ML SYRINGE IVP PRN (11:53)
[2019-03-24] MEDS ORDERED: KETOROLAC 30 MG/ML 1 ML VIAL IVP PRN (11:53)
[2019-03-24] MEDS ORDERED: DIPH,PERTUS(ACELL)TETVAC-LF 0.5 ML VIAL IM ONE (13:18)
[2019-03-24] MEDS: KETOROLAC 30 MG/ML 1 ML VIAL IVP PRN (16:10)
[2019-03-24] MEDS: SENNOSIDES-DOCUSATE SODIUM 1 EACH TAB PO SCH (22:47)
[2019-03-25] MEDS: LACTATED RINGERS 1,000 ML IV SCH ×3 (00:30→16:50)
[2019-03-25] MEDS: KETOROLAC 30 MG/ML 1 ML VIAL IVP PRN (03:11)
[2019-03-25 07:41] LABS: Basophils % (A) 1 %; Eosinophils % (A) 0 %; HCT 30.6 % (34.0-46.0); HGB 9.9 gm/dL (11.4-16.0); Lymphocytes # (A) 0.8 k/uL (1.0-4.8); Lymphocytes % (A) 9 %; MCH 30.7 pg (25.0-35.0); MCHC 32.6 g/dL (31.0-37.0); MCV 94.2 fL (80.0-100.0); Mean Platelet Volume 8.8; Monocytes # (A) 0.5 k/uL (0-1.0); Monocytes % (A) 6 %; Neutrophils % (A) 80 %; Platelet Count 324 k/uL (150-450); RBC 3.24 m/uL (3.80-5.40); RDW 13.2 % (11.5-15.5); WBC 8.7 k/uL (3.8-10.6)
[2019-03-25 09:14] VITALS: RESP 18
[2019-03-25] MEDS: SENNOSIDES-DOCUSATE SODIUM 1 EACH TAB PO SCH ×2 (09:14→20:27)
[2019-03-25] MEDS: IBUPROFEN 600 MG TAB PO PRN ×2 (11:32→17:33)
--- NOTE | 2019-03-25 12:59 | P.PNOBGPC ---
Subjective - Subjective Principal diagnosis: Status post repeat section with tubal ligation POD #1 Interval history: Patient is doing well. She is ambulating. She is passing flatus but no bowel movement yet. Lochia is decreasing. Her pain is fairly well controlled. Vital signs are stable. Blood pressures have been within normal range. She is breast-feeding. Patient reports: Reports appetite normal, Reports voiding normally, Reports pain well controlled, Reports ambulating normally : doing well, nursing well Objective - Vital Signs Latest vital signs: Vital Signs Temp Pulse Resp BP Pulse Ox 03/25/19 08:00 98.5 F 76 18 119/71 97 03/25/19 06:00 15 03/25/19 04:00 98.1 F 57 L 15 113/72 98 03/25/19 02:00 15 03/25/19 00:00 98.1 F 78 15 124/78 98 03/24/19 22:00 15 03/24/19 20:00 98 F 62 15 112/67 98 03/24/19 18:00 18 03/24/19 16:54 97 03/24/19 16:00 98.2 F 62 18 122/63 97 03/24/19 14:54 16 Intake and Output 03/24/19 03/25/19 03/25/19 22:59 06:59 14:59 Intake Total 1200 Output Total 1050 1600 Balance 150 -1600 Intake: Oral 1200 Output: Urine 1050 1600 Straight 1000 Uretheral (Link) 500 Other: # Voids 1 1 - Exam Chest: Normal S1, Normal S2 Extremities: Present: normal Abdomen: Present: normal appearance, soft (Positive bowel sounds 4). Absent: distention, tenderness Incision: Present: normal, dry, intact. Absent: erythematous Uterus: Present: normal, firm. Absent: tenderness - Labs Labs: Abnormal Lab Results - Last 24 Hours (Table) 03/25/19 Range/Units 06:43 RBC 3.24 L (3.80-5.40) m/uL Hgb 9.9 L (11.4-16.0) gm/dL Hct 30.6 L (34.0-46.0) % Lymphocytes # 0.8 L (1.0-4.8) k/uL Assessment and Plan Assessment: Status post repeat section with bilateral partial's appendectomy postoperative day #1 (1) 37 weeks gestation of Current Visit: No Status: Acute Code(s): Z3A.37 - 37 WEEKS GESTATION OF SNOMED Code(s): 27467659 (2) Family planning Current Visit: No Status: Acute Code(s): Z30.09 - ENCOUNTER FOR OTH GENERAL CNSL AND ADVICE ON CONTRACEPTION SNOMED Code(s): 662269426 (3) Gestational hypertension Current Visit: No Status: Acute Code(s): O13.9 - GESTATIONAL HTN W/O SIGNIFICANT PROTEINURIA, UNSP TRIMESTER SNOMED Code(s): 447140042 (4) Previous delivery affecting Current Visit: No Status: Acute Code(s): O34.219 - MATERNAL CARE FOR UNSP TYPE SCAR FROM PREVIOUS DEL SNOMED Code(s): 657961130 Plan: We'll continue with postoperative care today. Advance diet as tolerated. Encouraged ambulation. Switched oral pain medications today.
--- NOTE | 2019-03-25 15:56 | P.PN ---
Progress Note - Text 03/257 38-year-old female status post with a spinal anesthetic and Duramorph. Patient was seen and evaluated this morning for postop pain control, she has a VAS of 1 with no complains of nausea vomiting. She had pruritus but it is subsiding this morning
[2019-03-25] MEDS: HYDROcodone/APAP 7.5-325MG 1 EACH TAB PO PRN (20:18)
[2019-03-26] MEDS: HYDROcodone/APAP 7.5-325MG 1 EACH TAB PO PRN ×2 (03:58→10:10)
[2019-03-26 08:12] VITALS: BP 141/76; PULSE 80; TEMP 98.3
[2019-03-26] MEDS: SENNOSIDES-DOCUSATE SODIUM 1 EACH TAB PO SCH (08:12)
--- NOTE | 2019-03-26 10:39 | P.DS ---
Providers Date of admission: 03/24/19 05:53 Expected date of discharge: 03/26/19 Attending physician: Elizabeth Dial Primary care physician: Stated None - Discharge Diagnosis(es) (1) 37 weeks gestation of Current Visit: No Status: Acute (2) Family planning Current Visit: No Status: Acute (3) Gestational hypertension Current Visit: No Status: Acute (4) Previous delivery affecting Current Visit: No Status: Acute Hospital Course: This is a 38-year-old female 6 para 1 at 37-0/7 weeks who presented for scheduled repeat low transverse section with bilateral partial salpingectomy secondary to gestational hypertension and history of previous section. She also had her tubes tied for family planning. Postoperatively she has done well. She is passing flatus but no bowel movement yet. She is ambulating easily. She is urinating without difficulty. She is breast-feeding. She is using [place] for pain control. Vital signs have been stable. She had one isolated blood pressure this morning with a systolic of 141 however she states she feels that it is due to the weather and lack of sleep. She does feel comfortable going home and will check her blood pressures at home. Abdomen is soft with positive bowel sounds 4. Incision is clean dry and intact with kenneth in place. Extremities show negative Homans. Impression is status post repeat low transverse section with bilateral partial salpingectomy postoperative day #2. Plan is to discharge home today. She is advised to follow up in approximately 1 week for a postoperative check and in 6 weeks for check. [place] will be removed and Steri-Strips placed prior to discharge. Routine postoperative and instructions are given. She is also encouraged to continue to monitor her blood pressure at home. She is advised to call the office if her blood pressures are severe she has new symptoms. She will be given a prescription for ibuprofen and [place]. She has signed a opioid start talking form. She also has been given a prescription for a breast pump. Procedures: Repeat low transverse section with bilateral partial salpingectomy on 03/24/2019 Patient Condition at Discharge: Stable Plan - Discharge Summary New Discharge Prescriptions: New Ibuprofen [Motrin] 600 mg PO Q6HR PRN #60 tab PRN Reason: Mild Pain Or Fever >= 100.5 HYDROcodone/APAP 5-325MG [[place] 5-325] 1 each PO Q4HR PRN #18 tab PRN Reason: Moderate Pain Discontinued Pyridoxine [Vitamin B-6] 50 mg PO DAILY Doxylamine Succinate [Unisom] 25 mg PO DAILY Discharge Medication List HYDROcodone/APAP 5-325MG [[place] 5-325] 1 each PO Q4HR PRN #18 tab 03/25/19 [Rx] Ibuprofen [Motrin] 600 mg PO Q6HR PRN #60 tab 03/25/19 [Rx] Follow up Appointment(s)/Referral(s): Elizabeth Dial DO [Doctor of Osteopathic Medicine] - 1 Week Activity/Diet/Wound Care/Special Instructions: Instructions 1. Do not begin any exercise program for 3 weeks. 2. Do not resume sexual relations for 3 weeks or longer if uncomfortable. 3. You may take tub baths or showers at any time. 4. You may use tampons if desired after 3 weeks. 5. Keep the area of episiotomy (stitches) clean and dry. 6. If you are not nursing, wear a good fitting, supportive bra during the day and limit fluid intake for at least 1 week to prevent breast engorgement. 7. Call the office, [phone], within the next week to make appointment for your 6 week checkup if it has not already been made. 8. Report any of the following occurrences to the doctor promptly: a. Heavy, excessive bleeding b. Chills, fever c. Burning or frequency of urination d. Pain or redness and breasts if nursing e. Increasing pain or swelling in episiotomy (stitches). In addition to the above instructions, the following additional should be followed: 1. No heavy lifting or straining (exercising) until after 6 week checkup. 2. Keep abdominal incision clean and dry: You may wear a dressing if more comfortable. 3. Make office appointment for 10 days after going home or as instructed by her doctor. Discharge Disposition: HOME SELF-CARE
== END 2019-03-26 11:50 | disposition home or self-care (01) | DRG 785 ==
LOC: 4FBP 05:53
PROVIDERS: ADMIT Obstetrics & Gynecology; ATTEND Obstetrics & Gynecology
PROC: 0UB70ZZ Excision of Bilateral Fallopian Tubes, Open Approach (ICD-10-PCS; 2019-03-24)
PROC: 10D00Z1 Extraction of Products of Conception, Low, Open Approach (ICD-10-PCS; principal; 2019-03-24 08:00)
DX: O13.4 Gestational [pregnancy-induced] hypertension without significant proteinuria, complicating childbirth (principal); O34.211 Maternal care for low transverse scar from previous cesarean delivery; O12.14 Gestational proteinuria, complicating childbirth; O99.52 Diseases of the respiratory system complicating childbirth; J45.909 Unspecified asthma, uncomplicated; L29.9 Pruritus, unspecified; M79.7 Fibromyalgia; Z30.2 Encounter for sterilization; Z37.0 Single live birth; Z3A.37 37 weeks gestation of pregnancy; Z82.49 Family history of ischemic heart disease and other diseases of the circulatory system
CPT/HCPCS: 85025; 86850; 86900; 86901; 88302; 88307; 90715

== ENCOUNTER → 2019-05-02 | Outpatient (CLI) | payer BC ==
--- NOTE | 2019-05-03 07:24 | US ---
EXAMINATION TYPE: US abdomen limited DATE OF EXAM: 05/02/2019 COMPARISON: NONE CLINICAL HISTORY: O90.0 Disruption of delivery wound. Lump on c section scar. TECHNIQUE/FINDINGS: Targeted grayscale and color ultrasound was performed of the palpable abnormality on the patient's scar. Scanned area of concern no abnormalities seen. No solid or cystic ma ss seen by ultrasound. No subcutaneous edema. No abscess identified. Avascular scar is seen. IMPRESSION: No sonographic finding to correlate to the patient's palpable abnormality. If there is a persistent palpable abnormality MRI could evaluate for endometrial implant, scar dehiscence or desmo id tumor at the site of scar.
== END | disposition home or self-care (01) ==
LOC: RADUSWWP 16:23
PROVIDERS: ATTEND Internal Medicine
DX: O90.0 Disruption of cesarean delivery wound (principal)
CPT/HCPCS: 76705; 76857

== ENCOUNTER → 2020-11-19 | Outpatient (CLI) | payer BC ==
[2020-11-19 16:38] LABS: HCT 37.6 % (34.0-46.0); HGB 13.1 gm/dL (11.4-16.0); MCH 32.9 pg (25.0-35.0); MCHC 34.7 g/dL (31.0-37.0); MCV 94.7 fL (80.0-100.0); Mean Platelet Volume 7.2; Platelet Count 374 k/uL (150-450); RBC 3.97 m/uL (3.80-5.40); RDW 12.6 % (11.5-15.5); WBC 5.2 k/uL (3.8-10.6)
[2020-11-19 17:08] LABS: Lymphocytes # (M) 1.51 k/uL (1.0-4.8); Monocytes # (M) 0.26 k/uL (0-1.0); Neutrophils # (M) 3.43 k/uL (1.3-7.7); Neutrophils % (M) 66 %; Nucleated Red Blood Cells 0 /100 WBC (0-0); Total Cells Counted 100
== END | disposition home or self-care (01) ==
LOC: LABPAT 16:06
PROVIDERS: ATTEND Obstetrics & Gynecology
DX: Z01.812 Encounter for preprocedural laboratory examination (principal)
CPT/HCPCS: 36415; 85025

== ENCOUNTER 2020-11-25 06:17 | Day surgery (SDC) | payer BC ==
[2020-11-21 11:53] VITALS: BMI 19.8
--- NOTE | 2020-11-24 13:59 | P.HPOB ---
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 She did have a recent colposcopy that just showed cellular changes of HPV which is a significant discrepancy from her Pap smear. The patient does have a history of abnormal Pap smears since approximately 2011. She did undergo cryocautery for MORGAN-1 in July 2019. Her Pap smear on August 202020 showed high-grade with positive high risk HPV. Since she is done with her childbearing, she would like to proceed with more definitive surgical excision. OB history. . History of 2 deliveries one and one term. History of 1 ectopic and 3 miscarriages. Gynecologic history: History of abnormal Pap smears as described above. No other history of sexually transmitted diseases. She has had a tubal ligation. 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 Review of Systems Constitutional: Denies chills, Denies fever Eyes: denies blurred vision, denies pain Ears, nose, mouth and throat: Reports headache, Denies sore throat Cardiovascular: Denies chest pain, Denies shortness of breath Respiratory: Denies cough Gastrointestinal: Reports heartburn, Denies abdominal pain, Denies diarrhea, Denies nausea, Denies vomiting Genitourinary: Denies dysuria, Denies hematuria Musculoskeletal: Reports low back pain Integumentary: Denies pruritus, Denies rash Neurological: Reports numbness (Right toe), Denies weakness Psychiatric: Reports difficulty concentrating Past Medical History Past Medical History: Asthma, Fibromyalgia Additional Past Medical History / Comment(s): Exercise induced asthma. History of Any Multi-Drug Resistant Organisms: None Reported Past Surgical History: Section Additional Past Surgical History / Comment(s): D&C X3, pain management in back, Section X2. Past Anesthesia/Blood Transfusion Reactions: No Reported Reaction, Motion Sickness Past Psychological History: ADD/ADHD Additional Psychological History / Comment(s): ADHD. Smoking Status: Never smoker Past Alcohol Use History: None Reported Past Drug Use History: None Reported - Past Family History Father Family Medical History: Cancer Additional Family Medical History / Comment(s): Colon cancer. Mother History Unknown: Yes Family Medical History: Hypertension Additional Family Medical History / Comment(s): lupus Medications and Allergies Home Medications Medication Instructions Recorded Confirmed Type Dextroamphetamine/Amphetamine 40 mg PO DAILY 11/21/20 11/21/20 History [Adderall] Esomeprazole Magnesium [NexIUM] 20 mg PO DAILY 11/21/20 11/21/20 History Allergies Allergy/AdvReac Type Severity Reaction Status Date / Time Penicillins Allergy Rash/Hives Verified 11/21/20 11:41 Exam Osteopathic Statement: *. No significant issues noted on an osteopathic structural exam other than those noted in the History and Physical/Consult. HEENT: Within normal limits Heart: Regular rate and rhythm Lungs: Clear to auscultation bilaterally Abdomen old and soft, nontender Pelvic exam: Uterus is retroverted, nontender, with no adnexal masses or tenderness palpated Extremities: Negative Homans Assessment and Plan (1) High grade squamous intraepithelial lesion of cervix Status: Acute Code(s): R87.613 - HIGH GRADE INTREPITH LESION CYTO SMR CRVX (HGSIL) SNOMED Code(s): 109999472 Plan: Proceed with colposcopy with loop electrocautery excision procedure of the cervix. I have discussed the risks, benefits, and alternative therapies for the above- mentioned procedure and for both sedation/anesthesia as well as necessary blood products administration, if indicated, as they pertain to this patient. The patient has indicated her understanding and acceptance of the risks and procedures discussed.
[~2020-11-25 06:17] MED LIST changes: -DEXAMETHASONE SOD PHOSPHATE 10 MG/ML 1 ML VIAL IV ONE; -LACTATED RINGERS 1,000 ML IV SCH; -MIDAZOLAM 2 MG/2 ML VIAL IV PRN; -ONDANSETRON 4 MG/2 ML VIAL IVP ONE; -SCOPOLAMINE 1.5MG/72HR PATCH TRANSDERM ONE; -fentaNYL (PF) 50 MCG/ML 2 ML AMP IV PRN
[2020-11-25] MEDS ORDERED: ONDANSETRON 4 MG/2 ML VIAL IVP ONE (06:53)
[2020-11-25] MEDS ORDERED: HYDROmorphone 0.5 MG/0.5 ML SYRINGE IVP PRN (06:53)
[2020-11-25] MEDS ORDERED: LIDOCAINE 1% (10MG/ML) FOR IV START INTRADERMA PRN (06:53)
[2020-11-25] MEDS ORDERED: DEXAMETHASONE SOD PHOSPHATE 4 MG/ML 1 ML VIAL IV ONE (06:53)
[2020-11-25] MEDS ORDERED: MIDAZOLAM 2 MG/2 ML VIAL IV PRN (06:53)
[2020-11-25] MEDS: LACTATED RINGERS 1,000 ML IV SCH ×2 (07:09→07:33)
[2020-11-25] MEDS ORDERED: SCOPOLAMINE 1.5MG/72HR PATCH TRANSDERM ONE (07:17)
[2020-11-25] MEDS ORDERED: LIDOCAINE 1%-EPI 1:100,000 20 ML VIAL SQ ONE ×3 (07:20→07:57)
[2020-11-25] MEDS ORDERED: BUPIVACAINE (PF) 0.5% 30 ML VIAL SQ ONE ×3 (07:20→07:57)
[2020-11-25] MEDS ORDERED: PROPOFOL 10 MG/ML 20 ML VIAL IV ONE (07:29)
[2020-11-25] MEDS ORDERED: fentaNYL (PF) 50 MCG/ML 2 ML AMP ONE (07:29)
[2020-11-25] MEDS ORDERED: LIDOCAINE 1% INJ 10MG/ML (20 ML MDV) ONE (07:29)
[2020-11-25] MEDS ORDERED: KETOROLAC 15 MG/ML 1 ML VIAL ONE (07:29)
[2020-11-25] MEDS ORDERED: MIDAZOLAM 2 MG/2 ML VIAL ONE (07:29)
[2020-11-25] MEDS ORDERED: FERRIC SUBSULFATE (MONSELS) JAR TOPICAL ONE (07:50)
[2020-11-25] MEDS ORDERED: ACETIC ACID 15 DROPS/ML DROPS MISCELLANE ONE (07:50)
--- NOTE | 2020-11-25 08:07 | P.OP ---
Date of Procedure: 11/25/20 Preoperative Diagnosis: High-grade squamous intraepithelial lesion of the cervix Postoperative Diagnosis: Same Procedure(s) Performed: Colposcopy with loop electrocautery excision procedure Anesthesia: other (Mask general) Surgeon: Elizabeth Dial Estimated Blood Loss (ml): 5 Pathology: other (Ectocervix with 12 o'clock position marked with a suture and small separate piece is 9 o'clock position. 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 She did have a recent colposcopy that just showed cellular changes of HPV which is a significant discrepancy from her Pap smear. The patient does have a history of abnormal Pap smears since approximately 2011. She did undergo cryocautery for MORGAN-1 in July 2019. Her Pap smear on August 202020 showed high-grade with positive high risk HPV. Since she is done with her childbearing, she would like to proceed with more definitive surgical excision. Operative Findings: Upon colposcopy, no visualized abnormalities were seen with acetic acid or Lugol solution. Small stenotic os was noted. Transition zone was not seen entirely. Description of Procedure: The patient was taken to the operating room where she is placed in the dorsal lithotomy position. She is prepped and draped in the normal sterile fashion. Her bladder was drained with a catheter. A coated bivalve speculum was then placed in the patient's vagina. Colposcopy was performed using a blue light. The cervix was swabbed with 5% acetic acid solution and no visualized abnormalities were noted. Next the cervix was swabbed with Lugol solution. No abnormalities are seen. A small stenotic os is noted and transition zone is not seen. A 50-50 mixture of 1% lidocaine with epinephrine and half percent Marcaine was used with a spinal needle to inject circumferentially around the cervix. Approximately 8 mL were used. Next a large loop was used with 35 W of cutting power to swipe from left to right. The specimen was removed from the field and then a small separate piece from the 9 o'clock position was removed. Next a small loop was used to remove the endocervix again using 35 W of cutting power. Next a ball-tipped cautery was used to cauterize the bed left behind. The ectocervical specimen was then marked with a suture at the 12 o'clock position. All the specimens were placed in 1 specimen container with the ectocervix marked at the 12 o'clock position a small separate these noted to be 9 o'clock position and a larger separate piece noted to be endocervix. Monsel solution is applied to the bed left behind. Excellent hemostasis is noted. All instrument are removed from the vagina. All sponge counts are correct. The patient is then taken to recovery room in stable condition.
[2020-11-25 08:16] VITALS: TEMP 97.9
[2020-11-25 09:20] VITALS: RESP 16
[2020-11-25 09:21] VITALS: BP 110/71; PULSE 87
== END 2020-11-25 09:45 | disposition home or self-care (01) ==
LOC: OR 06:17
PROVIDERS: ATTEND Obstetrics & Gynecology
DX: D06.0 Carcinoma in situ of endocervix (principal)
CPT/HCPCS: 57522; 81025; J2250; J1100; J2405; J2001; J3010; J1885; J2704

== ENCOUNTER → 2023-06-02 | Outpatient (CLI) | payer BC ==
[2023-06-02 15:52] LABS: Anion Gap 12.9 mmol/L (4.00-12.00); Carbon Dioxide 26.1 mmol/L (21.6-31.8); Potassium 3.8 mmol/L (3.5-5.5)
[2023-06-02 15:58] LABS: Basophils # (A) 0.05 X 10*3/uL (0.00-0.10); Basophils % (A) 0.8 %; Eosinophils # (A) 0.03 X 10*3/uL (0.04-0.35); Eosinophils % (A) 0.5 %; HCT 41.3 % (37.2-46.3); HGB 13.8 g/dL (12.0-15.0); Lymphocytes # (A) 1.59 X 10*3/uL (0.90-5.00); Lymphocytes % (A) 25.3 %; MCH 32.2 pg (27.0-32.0); MCHC 33.4 g/dL (32.0-37.0); MCV 96.5 FL (80.0-97.0); Mean Platelet Volume 9.9 FL (9.5-12.2); Monocytes # (A) 0.46 X 10*3/uL (0.20-1.00); Monocytes % (A) 7.3 %; NRBC Per 100 WBC 0 X 10*3/uL (0.00-0.01); Neutrophils # (A) 4.14 X 10*3/uL (1.80-7.70); Neutrophils % (A) 65.8 %; Platelet Count 350 X 10*3/uL (140-440); RBC 4.28 X 10*6/uL (4.10-5.20); RDW 12.7 % (11.5-14.5); WBC 6.29 X 10*3/uL (4.50-10.00)
== END | disposition home or self-care (01) ==
LOC: LABPAT 11:04
PROVIDERS: ATTEND Orthopaedic Surgery
DX: Z01.812 Encounter for preprocedural laboratory examination (principal); M23.91 Unspecified internal derangement of right knee
CPT/HCPCS: 36415; 80051; 85025

== ENCOUNTER 2023-06-10 07:13 | Day surgery (SDC) | payer BC ==
[2023-06-07 08:44] VITALS: BMI 19.5
--- NOTE | 2023-06-09 13:12 | HP ---
HISTORY AND PHYSICAL DATE OF SCHEDULED SURGERY: 06/10/2023. HISTORY OF PRESENT ILLNESS: Venus Butler is a 42-year-old patient seen with progressive right knee pain. Options were discussed. She elected to proceed with right knee arthroscopy. Consent was obtained. PAST MEDICAL HISTORY: Migraine headaches, asthma. SURGICAL HISTORY: Knee arthroscopy. DAILY MEDICATIONS: 1. Albuterol inhaler. 2. Ibuprofen. 3. Multivitamin. 4. Symbicort. ALLERGIES: None. SOCIAL HISTORY: She denies tobacco use. PHYSICAL EVALUATION OF RIGHT KNEE: Range of motion is +3 to 135 degrees. Mild effusion. Tenderness to medial joint line. Positive medial Aggie's. Ligaments stable. Hip rotation without pain. Distal neurovascular exam is intact. IMAGING STUDIES: Radiographs of the right knee revealed no abnormality. MRI right knee revealed medial meniscal tear, patellar chondromalacia, and effusion. IMPRESSION: 1. Internal derangement of right knee with medial meniscal tear. 2. Right knee patellar chondromalacia. PLAN: Right knee arthroscopy with partial medial meniscectomy and debridement. MMODL / IJN: [id number] /
[2023-06-10] MEDS ORDERED: LIDOCAINE 1% (10MG/ML) FOR IV START INTRADERMA PRN (07:35)
[2023-06-10] MEDS ORDERED: MIDAZOLAM 2 MG/2 ML VIAL IV PRN (07:35)
[2023-06-10] MEDS ORDERED: HYDROmorphone 0.5 MG/0.5 ML SYRINGE IVP PRN (07:35)
[2023-06-10] MEDS: LACTATED RINGERS 1,000 ML IV SCH (07:50)
[2023-06-10] MEDS: ONDANSETRON 4 MG/2 ML VIAL IVP ONE (08:03)
[2023-06-10] MEDS: DEXAMETHASONE SOD PHOSPHATE 4 MG/ML 1 ML VIAL IV ONE (08:03)
[2023-06-10] MEDS ORDERED: LIDOCAINE 1% INJ 10MG/ML (20 ML MDV) ONE (08:28)
[2023-06-10] MEDS ORDERED: MIDAZOLAM 2 MG/2 ML VIAL ONE (08:28)
[2023-06-10] MEDS ORDERED: fentaNYL (PF) 50 MCG/ML 2 ML AMP ONE (08:28)
[2023-06-10] MEDS ORDERED: PROPOFOL 10 MG/ML 20 ML VIAL IV ONE (08:28)
[2023-06-10] MEDS: BUPIVACAINE (PF) 0.25% 30 ML VIAL INTRAARTIC ONE (08:30)
--- NOTE | 2023-06-10 09:11 | P.OP ---
Date of Procedure: 06/10/23 Preoperative Diagnosis: Internal derangement right knee Postoperative Diagnosis: 1. Tear medial and lateral meniscus right knee 2. Reactive synovitis medial, lateral and suprapatellar compartments right knee 3. 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 Arthroscopic partial medial and lateral meniscectomy right knee 2. Arthroscopic partial synovectomy medial, lateral and suprapatellar compartments right knee 3. Arthroscopic chondroplasty medial femoral condyle knee Anesthesia: HAMMADA, local Surgeon: Kali Bowers Estimated Blood Loss (ml): 5 Pathology: none sent Condition: stable Disposition: PACU Indications for Procedure: 42-year-old patient seen with progressive right knee pain. After having treatment options discussed, she elected to proceed with arthroscopy. Operative Findings: See description of procedure Description of Procedure: Patient was taken to the operative suite. Patient underwent a general anesthetic by the department of anesthesia. Patient was given preoperative antibiotics. The right lower extremity was placed in a well-padded arthroscopic leg almendarez. The right leg was prepped and draped in the normal sterile orthopedic fashion. A lateral parapatellar and suprapatellar incision was made. Trochars were inserted. Arthroscopy was initiated. Suprapatellar pouch revealed diffuse thick reactive synovitis. The patellofemoral joint appeared to articulate congruently. There was no chondromalacia present. The scope was guided into the medial gutter. No loose bodies or plica were identified. The scope was then guided into the medial compartment. A medial parapatellar incision was made. Trocar inserted followed by probe. Was a tear involving the posterior horn of the medial meniscus. There were grade I chondromalacia changes along the medial femoral condyle with a small osteochondral flap tear present. There was thick reactive synovitis anteriorly. I performed a partial medial meniscectomy getting down to stable meniscal tissue. I performed a chondroplasty of the medial femoral condyle getting down to stable osteochondral tissue. I performed a partial synovectomy decompressing the reactive synovitis. The residual meniscus was stable. The residual osteochondral surface was stable. There was good decompression of the synovitis. Scope and probe were then guided into the intercondylar notch. Cruciates were identified, probed and found to be stable. The scope and probe were then guided into lateral compartment. There was a radial tear involving the anterior horn lateral meniscus. There was some thick reactive synovitis in that anterior aspect of the lateral compartment as well. There was no chondromalacia present. The remaining meniscus was stable. I performed a partial lateral meniscectomy. I performed a partial synovectomy. The residual meniscus was stable. There was good decompression of the synovitis. The scope was in guided back into the suprapatellar compartment. I introduced a motorized shaver into the suprapatellar compartment. I performed a partial synovectomy. The shaver was removed. There was good decompression of the synovitis. I now took 1 more look around the entire knee, no residual debris. Instruments were now removed from the joint. The joint was infiltrated with .25% Marcaine. Steri-Strips were applied to the portal sites. Sterile dressings were applied. The patient was placed into a TY hose. No tourniquet was utilized. The patient was awakened, transferred to a bed and taken to recovery stable satisfactory condition.
[2023-06-10 09:29] VITALS: RESP 16; TEMP 97.9
[2023-06-10 10:51] VITALS: BP 111/70; PULSE 78
== END 2023-06-10 11:03 | disposition home or self-care (01) ==
LOC: OR 07:13
PROVIDERS: ATTEND Orthopaedic Surgery
DX: S83.241A Other tear of medial meniscus, current injury, right knee, initial encounter (principal); S83.281A Other tear of lateral meniscus, current injury, right knee, initial encounter; J45.909 Unspecified asthma, uncomplicated; M22.41 Chondromalacia patellae, right knee; M65.161 Other infective (teno)synovitis, right knee; G43.909 Migraine, unspecified, not intractable, without status migrainosus; Z79.51 Long term (current) use of inhaled steroids; Z79.899 Other long term (current) drug therapy; X58.XXXA Exposure to other specified factors, initial encounter
CPT/HCPCS: 81025; 29880; J2250; J1100; J2405; J2001; J3010; J2704; J0665

== ENCOUNTER → 2024-01-26 | Outpatient (CLI) | payer BC ==
--- NOTE | 2024-02-01 09:02 | MM ---
Reason for Exam: Screening (asymptomatic). Last mammogram was performed 1 year(s) and 8 month(s) ago. Patient History: Menarche at age 14. First Full-Term at age 34. Late child-bearing (after 30). Last menstrual period: 01/01/2024 Risk Values: Louisa 5 year model risk: 0.9%. NCI Lifetime model risk: 13.4%. Prior Study Comparison: 10/18/2020 Bilateral Screening Mammogram, [facility]. 05/28/2022 Bilateral Screening Mammogram, [facility]. Tissue Density: The breasts are extremely dense, which lowers the sensitivity of mammography. Findings: Analyzed By CAD. There is no suspicious group of microcalcifications or new suspicious mass in either breast. Overall Assessment: Negative, BI-RAD 1 Management: Screening Mammogram of both breasts in 1 year. Given patient's extremely dense breast tissue, consideration can be given to supplementary screening with breast ultrasound. Patient should continue monthly self-breast exams. A clinical breast exam by your physician is recommended on an annual basis. This exam should not preclude additional follow-up of suspicious palpable abnormalities. Note on Louisa scores and lifetime risk: 1. A Louisa score greater than 3% is considered moderate risk. If this is the case, consider specialist referral to assess eligibility for a risk reducing agent. 2. If overall lifetime risk for the development of breast cancer is 20% or higher, the patient may qualify for future screening with alternating mammogram and breast MRI. [facility], , 02/01/2024 8:59 AM. Electronically signed and approved by: Cassi Leyva M.D. Radiologist
== END | disposition home or self-care (01) ==
LOC: RADMAMWWP 11:20
PROVIDERS: ATTEND Obstetrics & Gynecology
DX: Z12.31 Encounter for screening mammogram for malignant neoplasm of breast (principal); R92.343 Mammographic extreme density, bilateral breasts
CPT/HCPCS: 77063; 77067